=== PATIENT | female | born 1955 | race Asian ===

== ENCOUNTER → 2018-10-20 | Day surgery (SDC) | payer OTHER ==
[2018-10-15 15:33] LABS: EOSINOPHILS # (AUTO) 0.1 (0.0-0.4); EOSINOPHILS % 2.5 % (0.0-6.0); HEMATOCRIT 34.7 % (34.2-44.1); HEMOGLOBIN 11.1 g/dL (12.0-16.0); LYMPHOCYTES # (AUTO) 0.9 (1.0-3.2); LYMPHOCYTES % 32.5 % (18.0-39.1); MEAN CORPUSCULAR HEMOGLOBIN 22.7 pg (28-32); MEAN CORPUSCULAR VOLUME 70.8 fL (81-99); MONOCYTES # (AUTO) 0.2 (0.2-0.8); MONOCYTES % 6.7 % (4.4-11.3); NEUTROPHILS # (AUTO) 1.6 (2.1-6.9); NEUTROPHILS % 57.9 % (38.7-80.0); RED CELL DISTRIBUTION WIDTH 15.9 % (11.7-14.4)
[2018-10-15 15:38] LABS: PLATELET COUNT 75 x10e3/uL (140-360)
[2018-10-15 15:50] LABS: INR 0.97; PROTHROMBIN TIME 13.8 seconds (11.9-14.5)
[2018-10-15 15:51] LABS: PARTIAL THROMBOPLASTIN TIME 36.7 seconds (23.8-35.5)
[2018-10-15 15:54] LABS: ALANINE AMINOTRANSFERASE 37 IU/L (0-55); ALBUMIN 4.1 g/dL (3.5-5.0); ALBUMIN/GLOBULIN RATIO 1.3 (0.8-2.0); ALKALINE PHOSPHATASE 45 IU/L (40-150); ANION GAP 9.5 mmol/L (8-16); BLOOD UREA NITROGEN 18 mg/dL (7-26); BUN/CREATININE RATIO 22 (6-25); CALCIUM 9.3 mg/dL (8.4-10.2); CARBON DIOXIDE 23 mmol/L (22-29); CHLORIDE 106 mmol/L (98-107); CREATININE, SERUM 0.81 mg/dL (0.57-1.11); EST GLOMERULAR FILTRATION RATE > 60 ML/MIN (60-); GLUCOSE 124 mg/dL (74-118); POTASSIUM 3.5 mmol/L (3.5-5.1); SODIUM 135 mmol/L (136-145)
[~2018-10-20] MED LIST: BARACLUDE1 MG PO; EPHEDRINE SULFATE INJ 50 MG/10 ML SYR ONE; FENTANYL CITRATE/PF 100MCG/2 ML INJ ONE; MIDAZOLAM HCL 2 MG/2 ML VIAL ONE; MOVE FREE PO; PROPOFOL IV EMULSION 10 MG/ML 50 ML VIAL ONE
--- OUTSIDE RECORDS SUMMARY | 2018-10-20 05:15 | XMS REPORT | Continuity of Care Document ---
Author Author [facility] Interface Address Unknown Phone Unavailable Problems Problem Status Onset Date Classification Date Reported Comments Source Cyst of kidney, acquired 04/07/2018 10/18/2018 [place] Louise B18.1 - CHRONIC VIRAL HEPATITIS B WITH Active 11/25/2017 OPID Meg Other specified disorders of kidney and ureter 10/18/2018 OPIRafael Louise Medications Medication Details Route Status Patient Instructions Ordering Provider Order Date Source Allergies, Adverse Reactions, Alerts Substance Category Reaction Severity Reaction type Status Date Reported Comments Source Immunizations Immunization Date Given Site Status Last Updated Comments Source Results Order Name Results Value Reference Range Date Interpretation Comments Source Retroperitoneal Complete US Retroperitoneal Complete US Clinical Indication: Cyst of kidney, acquired - .; Comparison: Abdominal ultrasound December 03, 2017. TECHNIQUE: Multiple longitudinal and transverse real time sonographic images of the kidneys and urinary bladder are obtained. FINDINGS: KIDNEY: The right kidney measures 9.8 cm. The left kidney measures 9.1 cm. The kidneys are normal in size, shape, contour, and position. The cortices are normal in thickness and the corticomedullary differentiation is maintained. Mild right renal pelviectasis is seen. Large simple anechoic cyst of the left kidney midpole region measures 5.4 cm. No renal calculus or mass is seen. BLADDER: Partial distension of the urinary bladder with anechoic fluid is noted. No wall thickening or mass is seen. Visualized portions of the abdominal aorta and IVC are unremarkable. IMPRESSION: 1. Mild right renal pelviectasis. 2. Unchanged size and appearance of large left kidney mid pole 5.4 cm simple cyst. Due to lack of complex feature, no further imaging follow-up is necessary. SL: [id number] 03/31/2018 - - Read by: Phong Broussard MD Dictated Date/time: 04/01/18 11:53 Electronically Signed by: Phong Broussard MD 04/01/18 11:56 FINAL REPORT JANEY Louise Abdomen complete US Abdomen complete US Patient Name: SELINA DEUTSCH : 1955; Age: 62 years Female MR: [id number] Study: Abdomen complete US 12/03/2017 8:46 AM CDT CLINICAL INDICATION: B18.1 Chronic viral hepatitis B without delta-agent - . COMPARISON: None TECHNIQUE: Grayscale and limited color sonographic evaluation of the abdomen was performed using standard technique. FINDINGS: Liver: The liver demonstrates heterogeneous echogenicity and is normal in size, measuring 13.2 cm. No focal liver lesion identified. The main portal vein demonstrates normal hepatopedal flow. Gallbladder: Small echogenic and nonshadowing 4 mm polyp. No pericholecystic fluid or wall thickening. Biliary: No intra or extrahepatic biliary ductal dilatation. The common bile duct measures 0.3 cm. Pancreas: The visualized portions of the pancreatic body are unremarkable. Spleen: The spleen is normal in echogenicity and upper normal limits in size, measuring 13.5 cm in length. Kidney: The right kidney measures 9.9 cm in length. The left kidney measures 10.5 cm in length. Normal renal echogenicity and contour without evidence of hydronephrosis. Anechoic 5.8 cm cyst arises off the mid left kidney without significant septation or solid component. Aorta and IVC: The visualized portions are unremarkable. No evidence of free fluid. IMPRESSION: Heterogeneous hepatic parenchyma suggestive of intrinsic liver disease. Borderline splenomegaly. Mid left renal cyst (5.8 cm). Small gallbladder polyp. SL: [id number] 12/03/2017 - - Read by: Jez Lyman MD Dictated Date/time: 12/03/17 09:22 Electronically Signed by: Jez Lyman MD 12/03/17 09:25 FINAL REPORT TEX Weaver Vital Signs Vital Sign Value Date Comments Source Encounters Location Location Details Encounter Type Encounter Number Reason For Visit Attending Provider ADM Date DC Date Status Source [facility] Outpatient [facility] [id number] Jocelyn Razo 12/03/2017 12/04/2017 [place] [facility] [place] [facility] [id number] Jocelyn Razo 03/31/2018 04/01/2018 JANEY Louise Procedures Procedure Code Date Perfomer Comments Source
--- OUTSIDE RECORDS SUMMARY | 2018-10-20 05:15 | XMS REPORT | Summary of Care ---
Author Author [facility] [place] [place] Address Unknown Phone Unavailable Encounter [facility] Encntr_alias(FIN) [id number] Date(s): 03/31/18 - 03/31/18 [facility] [place] [address] [place], [place] [address]- [place] Encounter Diagnosis Cyst of kidney, acquired (Final) - 04/06/18 Other specified disorders of kidney and ureter (Final) - Discharge Disposition: Home or Self Care Attending Physician: Jocelyn Razo MD Referring Physician: Jocelyn Razo MD Vital Signs No data available for this section Problem List No data available for this section Allergies, Adverse Reactions, Alerts No data available for this section Medications No data available for this section Results No data available for this section Immunizations No data available for this section Procedures No data available for this section Social History No data available for this section Assessment and Plan No data available for this section
--- OUTSIDE RECORDS SUMMARY | 2018-10-20 05:16 | XMS REPORT | Summary of Care ---
Author Author [facility] Outpatient Imaging [facility] Outpatient Imaging [facility] Address Unknown Phone Unavailable Encounter HQ Encntr_alias(FIN) [id number] Date(s): 12/03/17 - 12/03/17 [facility] Outpatient Imaging [facility] [address] [facility] [address] [place], [place] [address]- [phone] Discharge Disposition: Home or Self Care Attending Physician: Jocelyn Razo MD Vital Signs No [...]
--- NOTE | 2018-10-20 07:10 | NUR ---
SPIRITUAL CARE - Pre-Surgery Assessment: Pt in bed. Pt's daughter at bedside. Pt reported supportive attention from family and friends. Intervention: I provided pastoral presence, hospitality, and sympathetic listening. I acquainted pt with availability of research assistant professor while hospitalized. Outcome: Pt expressed appreciation for visit. No need for follow up indicated at this time. FR[facility]yl[facility] Spiritual Care Department O: [phone] Pager: [phone] ([phone] number calling from)
[2018-10-20 09:15] VITALS: BP 117/88
== END | disposition home or self-care (01) ==
LOC: OR 05:13
PROVIDERS: ATTEND Internal Medicine Gastroenterology
DX: Z12.11 Encounter for screening for malignant neoplasm of colon (principal); K74.60 Unspecified cirrhosis of liver; K29.70 Gastritis, unspecified, without bleeding; K31.89 Other diseases of stomach and duodenum; K29.80 Duodenitis without bleeding; K44.9 Diaphragmatic hernia without obstruction or gangrene; B18.1 Chronic viral hepatitis B without delta-agent; K82.4 Cholesterolosis of gallbladder; K64.8 Other hemorrhoids; D12.0 Benign neoplasm of cecum; D12.4 Benign neoplasm of descending colon; K55.20 Angiodysplasia of colon without hemorrhage; I85.10 Secondary esophageal varices without bleeding
CPT/HCPCS: 36415; 43239; 45384; 80053; 85025; 85610; 85730; 93005; J2250; J2704; 45378